=== PATIENT | female | born 1950 | race Two or more races ===

== ENCOUNTER 2022-12-04 16:21 | Emergency (ER) | payer OTHER ==
[~2022-12-04] VITALS: Ht 160 cm; Wt 100.0 kg
[2022-12-04 18:07] VITALS: BP 102/69
[2022-12-04 19:09] LABS: Urine Bacteria NONE SEEN /hpf (None Seen); Urine Blood Negative /uL (Negative); Urine Specific Gravity 1.013 (1.001-1.035); Urine WBC 3 /hpf (0 - 5)
[2022-12-04] MEDS ORDERED: CEPH500T PO (20:00)
[2022-12-04] MEDS ORDERED: KETOROLAC TROMETH 60MG/2ML VIAL IM ONE (20:00)
[2022-12-04] MEDS ORDERED: IBUP-1454 PO (20:00)
[2022-12-04] MEDS ORDERED: CEPHALEXIN 250 MG CAP PO ONE (20:00)
[2022-12-04] MEDS ORDERED: PHEN95TA10 PO (20:00)
== END 2022-12-04 21:09 | disposition home or self-care (01) ==
LOC: ER 16:21
DX: N39.0 Urinary tract infection, site not specified (principal); I10 Essential (primary) hypertension
CPT/HCPCS: 81001